=== PATIENT | male | born 1970 | race Caucasian/White ===

== ENCOUNTER 2017-07-15 11:33 | Emergency (ER) | payer OTHER ==
[2017-07-15 11:55] VITALS: BP 162/107; PULSE 96; TEMP 99.1; BMI 29.2
--- NOTE | 2017-07-15 13:20 | PDOC ---
History of Present Illness - General Chief Complaint: Ear Problem Stated Complaint: EAR PAIN Time Seen by Provider: 07/15/17 12:49 History Source: Patient Exam Limitations: No Limitations - History of Present Illness Initial Comments: 07/15/17 13:28 Patient is a 46-year-old male with PMH of asthma who presents to the emergency department today complaining of left ear pain. He states that his pain began approximately 4 days ago. He states that it hurts to touch his ear. He has noticed clear fluid coming from his ear. He has not taken anything for his pain. Denies fevers, chills, cough, sore throat, trismus, nausea, vomiting and diarrhea. Past History - Travel Traveled outside of the country in the last 30 days: No Close contact w/someone who was outside of country & ill: No - Past Medical History Allergies/Adverse Reactions: Allergies Allergy/AdvReac Type Severity Reaction Status Date / Time No Known Allergies Allergy Verified 07/15/17 11:55 Home Medications: Ambulatory Orders Amoxicillin - [Amoxicillin 500mg Capsule -] 500 mg PO BID #14 capsule 07/15/17 Ibuprofen 800 mg PO TID #30 tablet 07/15/17 Ofloxacin Otic [Floxin Otic -] 10 drop OT BID #150 drops 07/15/17 Asthma: Yes CVA: No COPD: No - Suicide/Smoking/Psychosocial Hx Smoking History: Never smoked Hx Alcohol Use: Yes (SOCIAL) Drug/Substance Use Hx: No Substance Use Type: None Review of Systems - Review of Systems Able to Perform ROS?: Yes Comments:: 07/15/17 13:29 CONSTITUTIONAL: Absent: fever, chills, diaphoresis, generalized weakness, malaise, loss of appetite HEENT: Present: L ear pain Absent: rhinorrhea, nasal congestion, throat pain, throat swelling, difficulty swallowing, mouth swelling, eye pain, visual Changes CARDIOVASCULAR: Absent: chest pain, loss of consciousness, palpitations, irregular heart rate, peripheral edema RESPIRATORY: Absent: cough, shortness of breath, dyspnea with exertion, orthopnea, wheezing, stridor, hemoptysis GASTROINTESTINAL: Absent: abdominal pain, abdominal distension, nausea, vomiting, diarrhea, constipation, melena, hematochezia GENITOURINARY: Absent: dysuria, frequency, urgency, hesitancy, hematuria, flank pain, genital pain MUSCULOSKELETAL: Absent: myalgia, arthralgia, joint swelling SKIN: Absent: rash, itching, pallor HEMATOLOGIC/IMMUNOLOGIC: Absent: easy bleeding, easy bruising, lymphadenopathy, frequent infections ENDOCRINE: Absent: unexplained weight gain, unexplained weight loss, heat intolerance, cold intolerance NEUROLOGIC: Absent: headache, focal weakness or paresthesias, dizziness, unsteady gait, seizure, mental status changes, bladder or bowel incontinence PSYCHIATRIC: Absent: anxiety, depression, suicidal or homicidal ideation, hallucinations. Is the patient limited Sudanese proficient: No *Physical Exam - Vital Signs Last Vital Signs Temp Pulse Resp BP Pulse Ox 99.1 F 96 H 20 162/107 96 07/15/17 11:52 07/15/17 11:52 07/15/17 11:52 07/15/17 11:52 07/15/17 11:52 - Physical Exam Comments: 07/15/17 13:35 GENERAL: The patient is awake, alert, and fully oriented, in no acute distress. HEAD: Normal with no signs of trauma. EARS: L ear canal edematous and erythematous with clear and white drainage. Cannot visualize L TM. R ear with clear ear canal, normal appearing TM with good cone of light and bony landmarks EYES: Pupils equal, round and reactive to light, extraocular movements intact, sclera anicteric, conjunctiva clear. EXTREMITIES: Normal range of motion, no edema. NEUROLOGICAL: Normal speech, normal gait. PSYCH: Normal mood, normal affect. SKIN: Warm, Dry, normal turgor, no rashes or lesions noted. Medical Decision Making - Medical Decision Making 07/15/17 13:39 On exam patient with a very swollen and erythematous left ear canal with clear and white drainage. Also has tragus tenderness; symptoms most consistent with otitis externa. However since the ear canal is so swollen at this time will treat for a presumed otitis media at the same time. Prescribed amoxicillin 500 mg as well as ofloxacin drops. Patient is to follow-up with ENT. *DC/Admit/Observation/Transfer Diagnosis at time of Disposition: Otitis externa Qualifiers: Otitis externa type: swimmer's ear Chronicity: acute Laterality: left Qualified Code(s): H60.332 - Swimmer's ear, left ear - Discharge Dispostion Disposition: HOME Condition at time of disposition: Stable - Prescriptions Prescriptions: Amoxicillin - [Amoxicillin 500mg Capsule -] 500 mg PO BID #14 capsule Ibuprofen 800 mg PO TID #30 tablet Ofloxacin Otic [Floxin Otic -] 10 drop OT BID #150 drops - Referrals Referrals: Sarah Wallace MD [Primary Care Provider] - Gerardo Quintero MD [Staff Physician] - - Patient Instructions Printed Discharge Instructions: DI for Otitis Externa Additional Instructions: You have otitis externa. This is an ear infection of the ear canal. You were prescribed ear drops. Please use 10 drops in the right ear twice a day for one week. Your also prescribed amoxicillin. Please take this medication twice a day for one week. He may take ibuprofen 800 mg 3 times a day as needed for pain, not to exceed 3000 mg a day. Please follow-up with your primary care doctor in the next 2-3 days. If your symptoms do not resolve, you were given a referral for an ENT, Dr. Quintero. Return to the emergency department if you have worsening pain, fevers, changes in your hearing, difficulty opening her mouth, or any changes in your symptoms. - Post Discharge Activity Forms/Work/School Notes: Back to Work
[2017-07-15] MEDS ORDERED: IBUPROFEN 400 MG TABLET (FP) PO ONE ×2 (13:25→13:27)
== END 2017-07-15 13:30 | disposition home or self-care (01) ==
LOC: JERFT 11:33
DX: H60.332 Swimmer's ear, left ear (principal)
CPT/HCPCS: 99281-25

== ENCOUNTER 2020-03-09 05:32 | Emergency (ER) | payer OTHER ==
[2020-03-09 05:47] VITALS: BP 137/90; PULSE 82; TEMP 98.6; BMI 28.2
--- NOTE | 2020-03-09 06:06 | PDOC ---
History of Present Illness - General Chief Complaint: Ear Problem Stated Complaint: L EAR PAIN Time Seen by Provider: 03/09/20 05:47 History Source: Patient - History of Present Illness Initial Comments: 03/09/20 06:01 49-year-old male with no past medical history complaining of left ear pain. Patient reported that he has been taking several showers during the day and has also been cleaning his ears with Q-tip. Patient reports left ear pain for the last 2 to 3 days today getting worse. Patient also noted some drainage from the left ear. Past History - Medical History Allergies/Adverse Reactions: Allergies Allergy/AdvReac Type Severity Reaction Status Date / Time No Known Allergies Allergy Verified 03/09/20 05:47 Home Medications: Ambulatory Orders Lisinopril 20 mg PO DAILY 01/31/18 Ubidecarenone [Co Q-10] 100 mg PO DAILY 01/31/18 Amox-Tr/K Cl [Augmentin - 875Mg Tablet] 1 tab PO BID #14 tablet 03/09/20 Ofloxacin Otic [Floxin Otic -] 10 drop OT BID #1 bottle 03/09/20 Asthma: Yes CVA: No COPD: No HTN: Yes - Psycho-Social/Smoking History Smoking History: Never smoked Information on smoking cessation initiated: No - Substance Abuse Hx (Audit-C & DAST Scrn) How often the patient has a drink containing alcohol: Never Score: In Men: 4 or > Positive; In Women: 3 or > Positive: 0 Screen Result (Pos requires Nsg. Audit-10AR): Negative In the last yr the pt used illegal drug/Rx for NonMed reason: No Score: Yes response is considered Positive: 0 Screen Result (Positive result requires Nsg. DAST-10): Negative Review of Systems - Review of Systems Able to Perform ROS?: Yes Is the patient limited Malay proficient: No Constitutional: No: Symptoms Reported, See HPI, Chills, Diaphoresis, Fever, Loss of Appetite, Malaise, Night Sweats, Weakness, Weight Stable, Unintentional Wgt. Loss, Unexplained wgt Loss, Other HEENTM: Yes: Ear Pain, Ear Discharge *Physical Exam - Vital Signs Last Vital Signs Temp Pulse Resp BP Pulse Ox 98.6 F 82 20 137/90 100 03/09/20 05:44 03/09/20 05:44 03/09/20 05:44 03/09/20 05:44 03/09/20 05:44 - Physical Exam General Appearance: Yes: Appropriately Dressed HEENT: positive: Other (pain to the ear with pushing the tragus, serous drainge noted. right TM wnl) Neck: negative: Lymphadenopathy (R), Lymphadenopathy (L) Medical Decision Making - Medical Decision Making 03/09/20 06:05 A: otitis externa P: antibiotics pain control Discharge - Discharge Information Problems reviewed: Yes Clinical Impression/Diagnosis: Otitis externa Qualifiers: Otitis externa type: diffuse Chronicity: acute Laterality: left Qualified Code(s): H60.312 - Diffuse otitis externa, left ear Disposition: HOME - Additional Discharge Information Prescriptions: Amox-Tr/K Cl [Augmentin - 875Mg Tablet] 1 tab PO BID #14 tablet Ofloxacin Otic [Floxin Otic -] 10 drop OT BID #1 bottle - Follow up/Referral Referrals: Sarah Wallace MD [Primary Care Provider] - - Patient Discharge Instructions Patient Printed Discharge Instructions: Otitis Externa Additional Instructions: Take Augmentin as prescribed. Instill ofloxacin as prescribed. Take ibuprofen every 6 hours as needed for pain It is important that you follow-up with your primary doctor or an ear nose throat doctor to make sure that your infection is clearing. Do not insert anything in your ears. Return to the emergency room for any worsening symptoms - Post Discharge Activity Work/Back to School Note: Back to Work
[2020-03-09] MEDS ORDERED: IBUPROFEN 600 MG TABLET (FP) PO ONE ×2 (06:07→06:13)
== END 2020-03-09 06:18 | disposition home or self-care (01) ==
LOC: JER 05:32
DX: H60.312 Diffuse otitis externa, left ear (principal)
CPT/HCPCS: 99283-25